=== PATIENT | male | born 2000 | race African-American/Black ===

== ENCOUNTER 2023-06-19 15:09 | Emergency (ER) | payer OTHER | END 2023-06-19 16:20 | disposition home or self-care (01) | LOC: CSHERS 15:09 | DX: J06.9 Acute upper respiratory infection, unspecified (principal) | CPT/HCPCS: 71045 ==

== ENCOUNTER 2024-02-03 12:05 | Emergency (ER) | payer OTHER ==
[2024-02-03] MEDS ORDERED: Ibuprofen 200 MG TAB ONE (14:07)
[2024-02-03] MEDS ORDERED: Lidocaine 4% Patch ONE (14:08)
[2024-02-03] MEDS ORDERED: Ibuprofen 100 MG/5 ML UDCUP ONE (14:12)
== END 2024-02-03 15:38 | disposition home or self-care (01) ==
LOC: CSHERS 12:05
DX: M25.562 Pain in left knee (principal); E11.9 Type 2 diabetes mellitus without complications; F84.0 Autistic disorder
CPT/HCPCS: 99283